=== PATIENT | female | born 2000 | race Caucasian/White ===

== ENCOUNTER 2022-10-24 13:18 | Emergency (ER) | payer SELFPAY ==
[~2022-10-24] VITALS: Ht 152.4 cm; Wt 54.0 kg
[2022-10-24 13:26] VITALS: O2SAT 100
[2022-10-24] MEDS ORDERED: IBUPROFEN 600MG TABLET PO NR (14:15)
[2022-10-24] MEDS ORDERED: IBUPROFEN 600MG TABLET PO ONE (14:15)
[2022-10-24] MEDS ORDERED: TETANUS, DIPHTHERIA, PERTUSSIS VAC/PF 0.5ML (>10YR OLD) IM ONE (15:15)
[2022-10-24] MEDS ORDERED: BACITRACIN ZINC OINT UDPKT TOP ONE (15:15)
[2022-10-24] MEDS ORDERED: BO1 TP (15:22)
[2022-10-24 16:51] VITALS: BP 115/78; PULSE 65; RESP 20; TEMP 97.9
== END 2022-10-24 16:52 | disposition home or self-care (01) ==
LOC: ER 13:18
DX: T22.011A Burn of unspecified degree of right forearm, initial encounter (principal); X08.8XXA Exposure to other specified smoke, fire and flames, initial encounter; Y93.89 Activity, other specified; Y92.89 Other specified places as the place of occurrence of the external cause; Y99.8 Other external cause status
CPT/HCPCS: 90715; 90471; 99283; Z7610

== ENCOUNTER 2022-11-02 15:33 | Emergency (ER) | payer MEDICAID ==
[~2022-11-02] VITALS: Ht 149.9 cm; Wt 54.0 kg
[~2022-11-02 15:33] MED LIST: BO1 TP
[2022-11-02 16:23] VITALS: BP 108/71; PULSE 94; RESP 18; TEMP 98; O2SAT 99
== END 2022-11-02 17:59 | disposition home or self-care (01) ==
LOC: ER 15:33
DX: T22.211D Burn of second degree of right forearm, subsequent encounter (principal); X08.8XXD Exposure to other specified smoke, fire and flames, subsequent encounter
CPT/HCPCS: 99281